=== PATIENT | female | born 1945 | race Caucasian/White ===

== ENCOUNTER → 2018-03-23 | Outpatient (CLI) | payer MEDICARE, BC ==
[~2018-03-23] MED LIST: AMITRIPTYLINE100 MG PO; BYSTOLIC10 MG PO; GLIMEPIRIDE4 MG PO; LOSARTAN POTASS25 MG PO; SYNTHROID125 MCG PO
--- NOTE | 2018-03-23 18:04 | Diagnostic Imaging Report ---
Lumbar Spine Radiographs: 5 views including flexion and extension HISTORY: Spondylolisthesis, pain COMPARISON: None available. DISCUSSION: The osseous structures are partially obscured by stool and bowel gas. Five non-rib bearing lumbar vertebral bodies. A 4 mm anterolisthesis of L5 on S1 and 2 mm anterolisthesis of L4 on L5. These do not significantly change with flexion and extension (change less than 3 mm). No displaced fracture or compression deformity is identified. Disc Spaces: Multilevel degenerative changes, most notably severe at L2-3. Facets: Multilevel degenerative changes, most notably severe hypertrophic changes from L3-4 to L5-S1. Other: Curvilinear metallic densities project at the anterior abdomen. IMPRESSION: 1. No acute radiographic abnormality. 2. Multilevel degenerative changes, most notably severe hypertrophic facet arthrosis from L3-4 to L5-S1. 3. Minimal grade 1 anterolisthesis of L4 on L5 and L5 on S1, which does not significantly change with flexion and extension. Signed by: Dr. Jimbo Myers D.O., M.M.M. on 03/23/2018 6:00 PM
== END ==
LOC: MRI 15:23
PROVIDERS: ATTEND Neurological Surgery
DX: M43.16 Spondylolisthesis, lumbar region (principal); M48.061 Spinal stenosis, lumbar region without neurogenic claudication
CPT/HCPCS: 72110; 72148